=== PATIENT | male | born 1995 | race Caucasian/White ===

== ENCOUNTER 2020-01-15 20:39 | Emergency (ER) | payer MEDICAID, OTHER ==
[~2020-01-15] VITALS: Ht 177.8 cm; Wt 76.5 kg
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
--- NOTE | 2020-01-15 21:05 | NUR ---
JOANNA made aware of the things he said to me and I had him look at my documentation.
[2020-01-15] MEDS ORDERED: ondansetron 4mg rapidly disintigrating tab PO ONE (21:30)
[2020-01-15] MEDS ORDERED: normal saline 1000ml 1,000 ML IV ONE (21:30)
[2020-01-15 21:38] LABS: ALANINE AMINOTRANSFERASE 32 U/L (12-78); ALBUMIN 3.9 G/DL (3.4-5.0); ALBUMIN/GLOBULIN RATIO 1.1 (1.1-1.5); ALKALINE PHOSPHATASE 76 IU/L (46-116); ANION GAP 8 (8-16); ASPARTATE AMINO TRANSFERASE 18 U/L (10-37); BILIRUBIN,TOTAL 0.5 MG/DL (0.1-1.0); BLOOD UREA NITROGEN 13 MG/DL (7-18); BUN/CREATININE RATIO 11.6 (5.4-32.0); CALCIUM 9.3 MG/DL (8.5-10.1); CHLORIDE 106 MMOL/L (99-107); CREATININE 1.12 MG/DL (0.60-1.10); GLUCOSE 124 MG/DL (70-104); LIPASE 225 U/L (73-393); POTASSIUM 3.3 MMOL/L (3.5-5.1); SODIUM 144 MMOL/L (135-145); TOTAL CARBON DIOXIDE 30.4 MMOL/L (24-32); TOTAL PROTEIN 7.5 G/DL (6.4-8.2); eGFR 81 ML/MIN
[2020-01-15 21:56] LABS: BASOPHILS % (AUTO) 0.4 % (0-1); EOSINOPHILS # (AUTO) 0.2 X10'3 (0-0.9); EOSINOPHILS % (AUTO) 3.4 % (0-6); HEMATOCRIT 43.3 % (42.0-52.0); HEMOGLOBIN 14.5 g/dl (14.0-17.9); LYMPHOCYTES # (AUTO) 1.7 X10'3 (1.1-4.8); LYMPHOCYTES % (AUTO) 23.3 % (21-51); MEAN CORPUSCULAR HEMOGLOBIN 29.2 PG (27.0-31.0); MEAN CORPUSCULAR HGB CONC 33.4 g/dL (33.0-36.5); MEAN CORPUSCULAR VOLUME 87.6 FL (78-98); MEAN PLATELET VOLUME 8.2 FL (7.4-10.4); MONOCYTES # (AUTO) 0.5 X10'3 (0-0.9); MONOCYTES % (AUTO) 6.4 % (2-12); NEUTROPHILS # (AUTO) 4.8 X10'3 (1.8-7.7); NEUTROPHILS % (AUTO) 66.5 % (42-75); PLATELET COUNT 327 X10'3 (140-440); RED BLOOD COUNT 4.95 X10'6 (4.70-6.10); RED CELL DISTRIBUTION WIDTH 14.6 % (11.5-14.5); WHITE BLOOD COUNT 7.3 X10'3 (4.5-11.0)
[2020-01-15] MEDS ORDERED: potassium Cl 20 mEq SR tablet PO ONE (22:00)
[2020-01-15] MEDS ORDERED: ONDA4TAB6 PO (22:04)
--- NOTE | 2020-01-15 22:18 | NUR ---
Upon attempt to discharge pt. says he wants to be admitted. Advised no reason to admit pt. Pt. then states he feels "homocidal". Advised JOANNA Parish
[2020-01-15] MEDS ORDERED: BUPR150T8 PO (22:23)
[2020-01-15 22:45] LABS: ETHANOL < 0.010 GM/DL (0.0-0.010)
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
[2020-01-15 23:04] LABS: CLARITY,URINE SLIGHTLY CLOUDY (Clear); COLOR,URINE YELLOW (Yellow); GLUCOSE, URINE NEGATIVE (Neg); KETONES,URINE NEGATIVE (Neg); LEUKOCYTE ESTERASE ,URINE NEGATIVE (Neg); NITRITES, URINE NEGATIVE (Neg); OCCULT BLOOD,URINE LARGE (Neg); PROTEIN,URINE NEGATIVE (Neg); UROBILINOGEN,URINE 0.2 E.U/dL (0.2-1.0)
[2020-01-15 23:16] LABS: URINE AMPHETAMINE SCREEN NEGATIVE (Neg); URINE BARBITUATE SCREEN NEGATIVE (Neg); URINE BENZODIAZEPINES SCREEN NEGATIVE (Neg); URINE CANNABINOID SCREEN POSITIVE (Neg); URINE COCAINE SCREEN NEGATIVE (Neg); URINE METHADONE SCREEN NEGATIVE (Neg); URINE OPIATE SCREEN POSITIVE (Neg); URINE PHENCYCLIDINE SCREEN NEGATIVE (Neg)
[2020-01-15 23:20] LABS: UA COLLECTION TYPE CLN CATCH MIDSTREAM
[2020-01-15] MEDS ORDERED: LORazepam 1 MG tablet PO ONE (23:40)
--- NOTE | 2020-01-15 23:49 | NUR ---
Administered ativan to help with pt's sleep.
[2020-01-16 00:07] LABS: BACTERIA,URINE FEW /HPF (Neg); MUCUS STRANDS NONE SEEN /LPF (Neg); RBC,URINE 20-50 /HPF (0-2); SQUAMOUS EPITHELIAL CELL,UR FEW /LPF (FEW); WBC,URINE NONE SEEN /HPF (0-4)
--- NOTE | 2020-01-16 00:55 | NUR ---
Pt resting quietly, respirations normal, no s/s of distress.
--- NOTE | 2020-01-16 02:35 | NUR ---
Pt resting quietly, respirations normal, no s/s of distress.
--- NOTE | 2020-01-16 04:00 | NUR ---
Pt resting quietly, respirations normal, no s/s of distress.
--- NOTE | 2020-01-16 06:30 | NUR ---
Pt sleeping on his back. No s/s of acute distress noted.
[2020-01-16] MEDS ORDERED: buPROPion SR 150mg tablet PO SCH (08:00)
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
--- NOTE | 2020-01-16 10:30 | NUR ---
Pt interviewed by the formerly [facility]. Now back to sleep.
[2020-01-16 12:21] VITALS: BP 115/76
== END 2020-01-16 12:23 | disposition home or self-care (01) ==
LOC: ER 20:40
DX: R45.851 Suicidal ideations (principal); R11.2 Nausea with vomiting, unspecified; R10.9 Unspecified abdominal pain; E86.0 Dehydration; Z90.89 Acquired absence of other organs; Z59.0 Homelessness; Z79.899 Other long term (current) drug therapy
CPT/HCPCS: 36415; 80053; 80305; 80320; 81001; 83690; 85025; 99285; J7030